=== PATIENT | female | born 1980 | race Caucasian/White ===

== ENCOUNTER 2016-06-10 18:18 | Emergency (ER) | payer BC ==
[~2016-06-10] VITALS: Ht 170.2 cm; Wt 54.0 kg
[~2016-06-10 18:18] MED LIST: ADDE30TA PO; ALBUCI INH; ATEN-100 PO; CLON1 PO
[2016-06-10 18:25] VITALS: BP 114/81; PULSE 94; RESP 16; TEMP 98.4; O2SAT 99
--- NOTE | 2016-06-10 18:42 | PD ---
HPI Chief Complaint: Seizure Time Seen by Provider: 18:31 Travel History International Travel<30 days: No Contact w/Intl Traveler<30days: No Traveled to known affect area: No History of Present Illness HPI Patient is a 35-year-old female who presents emergency department with complaint of seizure. Patient states that she woke up this morning and the next thing she knew she was on the ground, incontinent of urine. She felt tired , confused and achy all over. She does not remember exactly what happened, believes believe she may have had a seizure. Patient notes a seizure times one approximately 3 years ago that was attributed do to electrolyte abnormality, pulse she believes her potassium was low at the time. In the interim, patient has not had any seizures and denies any antiepileptic use. Patient takes Adderall, Klonopin but has not had any recent changes in and the doses of these medicines. She is otherwise been well recently. This happened at approximately 5 AM, patient presents to the ED now at 6:40 PM because of inability to get a ride. She has felt well all day. PFSH Past Medical History Asthma: Yes Depression: Yes Diabetes: No Diminished Hearing: No Immunizations Current: Yes (HEP C CURRENT) ?: Not : 0 Para: 0 Miscarriage: 0 : 0 Past Surgical History Gynecologic Surgery: Yes (LAP FOR ENDOMETRIOSIS) Hysterectomy: Yes Social History Alcohol Use: Yes (1 BEER DAILY 5 DAYS A WEEK) Tobacco Use: No Substance Use: No Allergies-Medications (Allergen,Severity, Reaction): Coded Allergies: Amoxicillin (Verified Allergy, Severe, 06/10/16) Penicillin (Verified Allergy, Severe, UNKNOWN, 06/10/16) Reported Meds & Prescriptions Reported Meds & Active Scripts Active Reported Clonazepam 1 Mg Tab 1 Mg PO BID Albuterol Neb (Albuterol Sulfate) 1.25 Mg/3 Ml Neb 1.25 Mg NEB QID NEB PRN Adderall Xr 24 HR (Amphetamine/Dextroamphetamine) 30 Mg Cap 30 Mg PO DAILY Once daily in the morning. Review of Systems Except as stated in HPI: all other systems reviewed are Neg Physical Exam Narrative GENERAL: Thing female in no acute distress SKIN: Warm and dry. HEAD: Atraumatic. Normocephalic. EYES: Pupils equal and round. No scleral icterus. No injection or drainage. ENT: No nasal bleeding or discharge. Mucous membranes pink and moist. No bite to the tongue but the chip off one of her left maxillary teeth. NECK: Supple without nuchal rigidity CARDIOVASCULAR: Regular rate and rhythm. No murmur appreciated. RESPIRATORY: No accessory muscle use. Clear to auscultation. Breath sounds equal bilaterally. GASTROINTESTINAL: Abdomen soft, non-tender, nondistended. MUSCULOSKELETAL: Moves all extremity's normally NEUROLOGICAL: Awake and alert. No obvious cranial nerve deficits. Motor grossly within normal limits. Normal speech. PSYCHIATRIC: Appropriate mood and affect; insight and judgment normal. Data Data Last Documented VS Vital Signs Date Time Temp Pulse Resp B/P Pulse Ox O2 Delivery O2 Flow Rate FiO2 06/10/16 18:25 98.4 94 16 114/81 99 Orders Complete Blood Count With Diff (06/10/16 18:37) Basic Metabolic Panel (Bmp) (06/10/16 18:37) Electrocardiogram (06/10/16 ) Ecg Monitoring (06/10/16 18:37) Iv Access Insert/Monitor (06/10/16 18:37) Sodium Chloride 0.9% Flush (Ns Flush) (06/10/16 18:45) [facility] Medical Decision Making Medical Screen Exam Complete: Yes Emergency Medical Condition: Yes Medical Record Reviewed: Yes Differential Diagnosis 35-year-old female here with complaint of possible seizure. Differential includes seizure, syncope, arrhythmia, electrolyte abnormality, benzodiazepine or alcohol withdrawal. Less likely intracranial mass lesion. Narrative Course Patient placed on monitor, IV established and blood obtained. Twelve-lead EKG shows sinus rhythm with sinus arrhythmia without notable ST abnormalities, normal intervals. CBC, BMP were obtained and are pending at the time this dictation. Patient signed out to oncoming provider waiting results of same for hopeful disposition home. Additional Instructions: No driving for 6 months. Gita Ron MD Jun 10, 2016 18:42
[2016-06-10] MEDS ORDERED: CLON1TAB PO (18:43)
[2016-06-10] MEDS ORDERED: ALBU1.25 NEB (18:43)
[2016-06-10] MEDS ORDERED: ADDE30XR PO (18:43)
[2016-06-10] MEDS ORDERED: SODIUM CHLORIDE 0.9% FLUSH 5 ML FLUSH IVF PRN (18:45)
[2016-06-10 18:55] LABS: AUTOMATED NEUTROPHIL # 5.7 TH/MM3 (1.8-7.7); BASOPHIL # 0.1 TH/MM3 (0-0.2); EOSINOPHIL # 0.2 TH/MM3 (0-0.4); EOSINOPHIL % 1.9 % (0.0-4.0); HEMATOCRIT 41.9 % (35.0-46.0); HEMO FLAGS DIFF FINAL; LYMPH % 20.9 % (9.0-44.0); LYMPHOCYTE # 1.7 TH/MM3 (1.0-4.8); MEAN CELL VOLUME 94.1 FL (80.0-100.0); MEAN CORPUSCULAR HEMOGLOBIN 31.1 PG (27.0-34.0); MEAN CORPUSCULAR HGB CONC 33.1 % (32.0-36.0); MONO % 4.8 % (0.0-8.0); NEUT % 71.4 % (16.0-70.0); PLATELET COUNT 284 TH/MM3 (150-450); RED BLOOD COUNT 4.46 MIL/MM3 (4.00-5.30); RED CELL DISTRIBUTION WIDTH 13.1 % (11.6-17.2); WHITE BLOOD COUNT 8.1 TH/MM3 (4.0-11.0)
[2016-06-10 19:05] LABS: POTASSIUM 3.4 MEQ/L (3.5-5.1)
[2016-06-10 19:08] LABS: BICARBONATE 25.5 MEQ/L (21.0-32.0)
--- NOTE | 2016-06-10 19:29 | PD ---
Physical Exam Date Seen by Provider: Jun 10, 2016 Time Seen by Provider: 19:28 Narrative accepted in transfer of care from Dr Ron GENERAL: Well developed well-nourished female in no acute distress no respiratory distress; GCS 15 SKIN: Warm and dry. HEAD: Atraumatic. Normocephalic. EYES: Pupils equal and round. No scleral icterus. No injection or drainage. ENT: No nasal bleeding or discharge. Mucous membranes pink and moist. NECK: Trachea midline. No JVD. CARDIOVASCULAR: Regular rate and rhythm. RESPIRATORY: No accessory muscle use. Clear to auscultation. Breath sounds equal bilaterally. GASTROINTESTINAL: Abdomen soft, non-tender, nondistended. Hepatic and splenic margins not palpable. MUSCULOSKELETAL: Extremities without clubbing, cyanosis, or edema. No obvious deformities. NEUROLOGICAL: Awake and alert. No obvious cranial nerve deficits. Motor grossly within normal limits. Five out of 5 muscle strength in the arms and legs. Normal speech. PSYCHIATRIC: Appropriate mood and affect; insight and judgment normal. Data Data Last Documented VS Vital Signs Date Time Temp Pulse Resp B/P Pulse Ox O2 Delivery O2 Flow Rate FiO2 06/10/16 21:44 18 98 Room Air 06/10/16 21:38 87 95/60 06/10/16 18:25 98.4 Orders Complete Blood Count With Diff (06/10/16 18:37) Basic Metabolic Panel (Bmp) (06/10/16 18:37) Electrocardiogram (06/10/16 ) Ecg Monitoring (06/10/16 18:37) Iv Access Insert/Monitor (06/10/16 18:37) Sodium Chloride 0.9% Flush (Ns Flush) (06/10/16 18:45) Potassium Chloride (Kcl) (06/10/16 19:30) Calcium Gluconate (Calcium Gluconate) (06/10/16 19:30) Ct Brain W/O Iv Contrast(Rout) (06/10/16 ) Labs Laboratory Tests Test 06/10/16 18:48 White Blood Count 8.1 TH/MM3 Red Blood Count 4.46 MIL/MM3 Hemoglobin 13.9 GM/DL Hematocrit 41.9 % Mean Corpuscular Volume 94.1 FL Mean Corpuscular Hemoglobin 31.1 PG Mean Corpuscular Hemoglobin 33.1 % Concent Red Cell Distribution Width 13.1 % Platelet Count 284 TH/MM3 Mean Platelet Volume 8.2 FL Neutrophils (%) (Auto) 71.4 % Lymphocytes (%) (Auto) 20.9 % Monocytes (%) (Auto) 4.8 % Eosinophils (%) (Auto) 1.9 % Basophils (%) (Auto) 1.0 % Neutrophils # (Auto) 5.7 TH/MM3 Lymphocytes # (Auto) 1.7 TH/MM3 Monocytes # (Auto) 0.4 TH/MM3 Eosinophils # (Auto) 0.2 TH/MM3 Basophils # (Auto) 0.1 TH/MM3 CBC Comment DIFF FINAL Differential Comment Sodium Level 140 MEQ/L Potassium Level 3.4 MEQ/L Chloride Level 105 MEQ/L Carbon Dioxide Level 25.5 MEQ/L Anion Gap 10 MEQ/L Blood Urea Nitrogen 13 MG/DL Creatinine 0.72 MG/DL Estimat Glomerular Filtration 92 ML/MIN Rate Random Glucose 86 MG/DL Calcium Level 8.0 MG/DL [facility] Medical Record Reviewed: Yes Supervised Visit with CYNDI: No Interpretation(s) Last Impressions Head CT 06/10/16 0000 Signed Impressions: Service Date/Time: Friday, June 10, 2016 20:42 - CONCLUSION: Negative noncontrast head CT. Michael Conklin MD CBC & BMP Diagram 06/10/16 18:48 Differential Diagnosis accepted in transfer of care from Dr Ron, please refer to her dictation Narrative Course accepted in transfer of care from Dr Ron Patient aware of what bite disturbances and given oral replacement of calcium and potassium; Patient concerned no imaging has been performed therefore CT brain noncontrast ordered. CT brain noncontrast reveals no acute abnormality; patient has remained stable in the emergency department without any recurrent syncopal episodes no seizure activity identified and has been monitored without any type of ectopy or arrhythmia. Diagnosis Primary Impression: Syncope Qualified Code: R55 - Syncope, unspecified syncope type Additional Impressions: Hypocalcemia Hypokalemia Referrals: Primary Care Physician 1 day Patient Instructions: General Instructions Additional Instruction: Follow-up with your primary care provider times one day . No driving for 6 months. Return to the emergency department for any concerns or change in condition. Continue current medications as presently prescribed. Do not drink any alcoholic beverages and to follow-up with primary care provider. Follow minor closed head injury precautions 24 hours. Take acetaminophen as needed for discomfort or for fever 100.4F or greater. Apply ice to areas of soft tissue swelling intermittently for the next 12-24 hours. Add calcium containing and potassium containing foods and beverages to dietary intake. Med/Other Pt SpecificInfo: No Change to Meds Disposition: 01 DISCHARGE HOME Condition: Stable Ruby England MD Jun 10, 2016 19:29
[2016-06-10] MEDS ORDERED: CALCIUM GLUCONATE 500 MG TAB PO ONE (19:30)
[2016-06-10] MEDS ORDERED: POTASSIUM CHLORIDE 20 MEQ CONTROLLED RELEASE TAB PO ONE (19:30)
--- NOTE | 2016-06-10 21:10 | RADHPO ---
EXAM DATE/TIME: 06/10/2016 20:42 [facility] COMPARISON: No previous studies available for comparison. INDICATIONS : Syncope. RADIATION DOSE: 64.44 CTDIvol (mGy) MEDICAL HISTORY : Asthma SURGICAL HISTORY : Hysterectomy. ENCOUNTER: Initial ACUITY: 2 days PAIN SCALE: 3/10 LOCATION: cranial TECHNIQUE: Multiple contiguous axial images were obtained of the head. Using automated exposure control and adj ustment of the mA and/or kV according to patient size, radiation dose was kept as low as reasonably a chievable to obtain optimal diagnostic quality images. FINDINGS: CEREBRUM: The ventricles are normal for age. No evidence of midline shift, mass lesion, hemorrhage or acute in farction. No extra-axial fluid collections are seen. POSTERIOR FOSSA: The cerebellum and brainstem are intact. The 4th ventricle is midline. The cerebellopontine angle i s unremarkable. EXTRACRANIAL: The visualized portion of the orbits is intact. SKULL: The calvaria is intact. No evidence of skull fracture. CONCLUSION: Negative noncontrast head CT. Michael Conklin MD on June 10, 2016 at 21:08 Board Certified Radiologist. This report was verified electronically.
[2016-06-10 21:38] VITALS: BP 95/60; PULSE 87; RESP 18; O2SAT 98
--- NOTE | 2016-06-12 06:58 | EKG ---
Date Performed: 06/10/2016 Time Performed: 18:41:04 PTAGE: 35 years EKG: Sinus rhythm with PAC(s) Consider anteroseptal MO, age indeterminate. Q-waves in V1,V2 are new compared to previo us EKG Abnormal ECG PREVIOUS TRACING : 09/26/2007 16.54 DOCTOR: Nazario Small Interpretating Date/Time 06/12/2016 06:57:24
== END 2016-06-10 23:04 | disposition home or self-care (01) ==
LOC: PHED 18:18
DX: R55 Syncope and collapse (principal); E83.51 Hypocalcemia; E87.6 Hypokalemia; R94.31 Abnormal electrocardiogram [ECG] [EKG]; J45.909 Unspecified asthma, uncomplicated
CPT/HCPCS: 70450; 80048; 85025; 93005

== ENCOUNTER 2017-02-06 22:10 | Emergency (ER) | payer BC ==
[~2017-02-06] VITALS: Ht 170.2 cm; Wt 54.1 kg
[~2017-02-06 22:10] MED LIST changes: -ADDE30TA PO; +ADDE30XR PO; +ALBU1.25 NEB; -ALBUCI INH; -ATEN-100 PO; -CLON1 PO; +CLON1TAB PO
[2017-02-06 22:50] VITALS: BP 111/71; PULSE 87; RESP 20; TEMP 97.4; O2SAT 100
[2017-02-06] MEDS ORDERED: ATEN25TA PO (23:34)
[2017-02-06 23:38] VITALS: BP 125/72; PULSE 88; RESP 20; O2SAT 98
[2017-02-07] VITALS: O2SAT 98
[2017-02-07] MEDS ORDERED: IBUPROFEN 600 MG TAB PO ONE (00:15)
--- NOTE | 2017-02-07 00:18 | PD ---
HPI Chief Complaint: Respiratory Symptoms Time Seen by Provider: 00:09 Travel History International Travel<30 days: No Contact w/Intl Traveler<30days: No Traveled to known affect area: No History of Present Illness HPI The patient is a 36-year-old female that states she has been wheezing tonight. She used her albuterol nebulizer until she is shaky but still wheezing. She denies any fever. She was on antibiotics and it did not help. 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 She does not smoke. She denies any chest pain. PFSH Past Medical History ADHD: Yes Asthma: Yes Anxiety: Yes Depression: Yes Diabetes: No Diminished Hearing: No Immunizations Current: Yes (HEP C CURRENT) Tetanus Vaccination: < 5 Years Influenza Vaccination: No ?: Not : 0 Para: 0 Miscarriage: 0 : 0 Past Surgical History Gynecologic Surgery: Yes (LAP FOR ENDOMETRIOSIS) Hysterectomy: Yes Social History Alcohol Use: Yes (beer daily) Tobacco Use: No Substance Use: No Allergies-Medications (Allergen,Severity, Reaction): Coded Allergies: amoxicillin (Unverified Allergy, Severe, 02/06/17) penicillin G (Unverified Allergy, Severe, UNKNOWN, 02/06/17) Reported Meds & Prescriptions Reported Meds & Active Scripts Active Reported Atenolol 25 Mg Tab 1 Mg PO BID Clonazepam 1 Mg Tab 1 Mg PO BID Albuterol Neb (Albuterol Sulfate) 1.25 Mg/3 Ml Neb 1.25 Mg NEB QID NEB PRN Adderall Xr 24 HR (Amphetamine/Dextroamphetamine) 30 Mg Cap 30 Mg PO DAILY Once daily in the morning. Review of Systems Except as stated in HPI: all other systems reviewed are Neg Physical Exam Narrative GENERAL: The patient is alert, oriented 3 in slight respiratory distress. Her vital signs are normal with respirations of 20 and oximetry on her present. SKIN: Focused skin assessment warm/dry. HEAD: Atraumatic. Normocephalic. EYES: Pupils equal and round. No scleral icterus. No injection or drainage. ENT: No nasal bleeding or discharge. Mucous membranes pink and moist. NECK: Trachea midline. No JVD. CARDIOVASCULAR: Regular rate and rhythm. No murmur appreciated. RESPIRATORY: No accessory muscle use. A few scattered wheezes are heard bilaterally.. Breath sounds equal bilaterally. GASTROINTESTINAL: Abdomen soft, non-tender, nondistended. Hepatic and splenic margins not palpable. MUSCULOSKELETAL: No obvious deformities. No clubbing. No cyanosis. No edema. NEUROLOGICAL: Awake and alert. No obvious cranial nerve deficits. Motor grossly within normal limits. Normal speech. PSYCHIATRIC: Appropriate mood and affect; insight and judgment normal. Data Data Last Documented VS Vital Signs Date Time Temp Pulse Resp B/P (MAP) Pulse Ox O2 Delivery O2 Flow Rate FiO2 02/07/17 01:37 94 18 107/62 (77) 98 Room Air 02/06/17 22:50 97.4 Orders Orders Iv Access Insert/Monitor (02/07/17 00:18) Ecg Monitoring (02/07/17 00:18) Oximetry (02/07/17 00:18) Oxygen Administration (02/07/17 00:18) Sodium Chloride 0.9% Flush (Ns Flush) (02/07/17 00:30) Methylprednisolone So Succ Inj (Solumedr (02/07/17 00:30) Albuterol-Ipratropium Neb (Duoneb Neb) (02/07/17 00:30) MDM Medical Decision Making Medical Screen Exam Complete: Yes Emergency Medical Condition: Yes Medical Record Reviewed: Yes Differential Diagnosis Acute asthma, pneumonia, bronchitis, allergic reaction Narrative Course The patient apparently has acute asthma. She cleared up considerably when I listen to her lungs at 0140. She got good relief with the DuoNeb but does not have DuoNeb's at home. She has only albuterol for her nebulizer. She will be given a tapered course of prednisone. She is to follow-up with her primary care physician. Diagnosis Primary Impression: Acute asthma Additional Instructions: As we discussed, the prednisone is taken one tablet twice daily for 4 days followed by one tablet once daily for 4 days. Follow-up with your primary care physician next week. Med/Other Pt SpecificInfo: Prescription(s) given Scripts Prednisone (Prednisone) 50 Mg Tab 50 MG PO BID for X 4 days than once daily X 4 d, #12 TAB 0 Refills Prov: Rafi Sterling MD 02/07/17 Ipratropium-Albuterol Neb (Duoneb) 0.5-2.5 Mg/3 Ml Neb 1 NEBULE INH Q6HR NEB for Breathing Treatment, #120 NEBULE 0 Refills Prov: Rafi Sterling MD 02/07/17 Disposition: 01 DISCHARGE HOME Condition: Stable Rafi Sterling MD Feb 07, 2017 00:18
[2017-02-07] MEDS: RESP: ALBUTEROL 2.5 MG/IPRATROPIUM 0.5 MG NEB (SCH) INH ×2 (00:30→00:31)
[2017-02-07] MEDS ORDERED: SODIUM CHLORIDE 0.9% FLUSH 10 ML FLUSH IVF PRN (00:30)
[2017-02-07] MEDS ORDERED: methylPREDNISolone SOD SUCC 125 MG/2 ML VIAL IV PUSH ONE (00:30)
[2017-02-07 01:37] VITALS: BP 107/62; PULSE 94; RESP 18; O2SAT 98
[2017-02-07] MEDS ORDERED: IPRASOL INH (01:46)
[2017-02-07] MEDS ORDERED: PRED50 PO (01:49)
== END 2017-02-07 02:00 | disposition home or self-care (01) ==
LOC: PHED 22:10
DX: J45.909 Unspecified asthma, uncomplicated (principal)
CPT/HCPCS: 94640; 94664; 96374; 99285; J2930

== ENCOUNTER 2017-04-02 01:08 | Emergency (ER) | payer BC ==
[~2017-04-02] VITALS: Ht 170.2 cm; Wt 58.8 kg
[~2017-04-02 01:08] MED LIST changes: +ATEN25TA PO; +IPRASOL INH; +PRED50 PO
[2017-04-02 01:15] VITALS: BP 116/72; PULSE 127; RESP 12; TEMP 98; O2SAT 98
[2017-04-02] MEDS ORDERED: ATEN25TA PO (01:23)
--- NOTE | 2017-04-02 01:33 | PD ---
HPI Chief Complaint: Respiratory Symptoms Time Seen by Provider: 01:32 Travel History International Travel<30 days: No Contact w/Intl Traveler<30days: No Traveled to known affect area: No History of Present Illness HPI Patient is a 36-year-old female presents emergency department with cough and congestion for the past 2-3 days as well as shortness of breath. Patient states she took 2 albuterol treatments at home and then began having tachycardiac episodes and because she didn't want to make herself anymore tachycardic she decided to come in and be seen. She states been several months is been on steroids, denies any fevers, denies any rash. Symptoms for the past 2-3 days, gradually worsening, context as above, associated signs symptoms as above. She states that she is fairly concerned about the stuffiness in her maxillary sinuses. PFSH Past Medical History ADHD: Yes Asthma: Yes Anxiety: Yes Depression: Yes Diabetes: No Diminished Hearing: No Respiratory: Yes (BRONCHITIS) Immunizations Current: Yes (HEP C CURRENT) Tetanus Vaccination: < 5 Years Influenza Vaccination: No ?: Not : 0 Para: 0 Miscarriage: 0 : 0 Past Surgical History Gynecologic Surgery: Yes (LAP FOR ENDOMETRIOSIS) Hysterectomy: Yes (2007) Social History Alcohol Use: Yes (beer daily) Tobacco Use: No Substance Use: No Allergies-Medications (Allergen,Severity, Reaction): Coded Allergies: amoxicillin (Unverified Allergy, Severe, 04/02/17) penicillin G (Unverified Allergy, Severe, UNKNOWN, 04/02/17) Reported Meds & Prescriptions Reported Meds & Active Scripts Active Azithromycin 250 Mg Tab 250 Mg PO DIRECTED Take 2 tabs (500 mg) on day 1 then 1 tab daily x 4 days. Prednisone 20 Mg Tab 60 Mg PO DAILY 5 Days Duoneb (Ipratropium-Albuterol Neb) 0.5-2.5 Mg/3 Ml Neb 1 Nebule INH Q6HR NEB Reported Atenolol 25 Mg Tab 25 Mg PO DAILY Review of Systems Except as stated in HPI: all other systems reviewed are Neg Physical Exam Narrative GENERAL: Well-developed well-nourished no obvious distress SKIN: Focused skin assessment warm/dry. HEAD: Atraumatic. Normocephalic. EYES: Pupils equal and round. No scleral icterus. No injection or drainage. ENT: No nasal bleeding or discharge. Mucous membranes pink and moist. Oropharynx clear, TMs clear bilaterally. NECK: Trachea midline. No JVD. CARDIOVASCULAR: Regular rhythm with mild tachycardia. No murmur appreciated. 2 + bilateral equal pulses in all 4 extremities RESPIRATORY: No accessory muscle use. There is an end inspiratory wheeze throughout all lung figueroa, good air entry, no accessory muscle use, speaks in full and complete sentences. Breath sounds equal bilaterally. GASTROINTESTINAL: Abdomen soft, non-tender, nondistended. Hepatic and splenic margins not palpable. MUSCULOSKELETAL: No obvious deformities. No clubbing. No cyanosis. No edema. NEUROLOGICAL: Awake and alert. No obvious cranial nerve deficits. Motor grossly within normal limits. Normal speech. PSYCHIATRIC: Appropriate mood and affect; insight and judgment normal. Data Data Last Documented VS Vital Signs Date Time Temp Pulse Resp B/P (MAP) Pulse Ox O2 Delivery O2 Flow Rate FiO2 04/02/17 02:38 122 18 118/68 (85) 99 04/02/17 02:20 Room Air 04/02/17 01:15 98.0 Orders Orders Electrocardiogram (04/02/17 01:32) Chest, Pa & Lat (04/02/17 01:32) Ecg Monitoring (04/02/17 01:32) Oximetry (04/02/17 01:32) Prednisone (Deltasone) (04/02/17 01:45) Albuterol-Ipratropium Neb (Duoneb Neb) (04/02/17 01:45) Sodium Chloride 0.9% Flush (Ns Flush) (04/02/17 01:45) Ed Discharge Order (04/02/17 02:27) [facility] Medical Decision Making Medical Screen Exam Complete: Yes Emergency Medical Condition: Yes Differential Diagnosis Asthma exacerbation, pneumonia, viral illness, sinusitis. Narrative Course Patient roomed emerged permit, given duo neb, chest x-ray negative. She appears well, saturating well. She is tachycardic however has no risk factors for pulmonary embolism and the risks far outweigh the benefits for CT angios at this time. I have very low clinical suspicion for pulmonary embolism given her symptomatology. She is feeling better, discussed symptomatic management, steroids, antibiotics, discussed return to ED criteria follow-up the primary care physician. She stable for discharge. Diagnosis Primary Impression: Asthma exacerbation Qualified Codes: J45.21 - Mild intermittent asthma with (acute) exacerbation Additional Impression: Sinusitis Patient Instructions: Asthma (DC), General Instructions, Sinusitis (ED) Med/Other Pt SpecificInfo: Prescription(s) given Scripts Azithromycin (Azithromycin) 250 Mg Tab 250 MG PO DIRECTED for Infection, #6 TAB 0 Refills Take 2 tabs (500 mg) on day 1 then 1 tab daily x 4 days. Prov: Akira Beck MD 04/02/17 Prednisone (Prednisone) 20 Mg Tab 60 MG PO DAILY for 5 Days, #15 TAB 0 Refills Prov: Akira Beck MD 04/02/17 Disposition: 01 DISCHARGE HOME Condition: Stable Akira Beck MD Apr 02, 2017 01:33
[2017-04-02] MEDS ORDERED: SODIUM CHLORIDE 0.9% FLUSH 10 ML FLUSH IVF PRN (01:45)
[2017-04-02] MEDS ORDERED: RESP: ALBUTEROL 2.5 MG/IPRATROPIUM 0.5 MG NEB (SCH) INH ONE (01:45)
[2017-04-02] MEDS ORDERED: predniSONE 20 MG TAB PO ONE (01:45)
[2017-04-02 02:20] VITALS: PULSE 124; RESP 18; O2SAT 98
[2017-04-02] MEDS ORDERED: PRED20 PO (02:26)
[2017-04-02] MEDS ORDERED: AZIT250T3 PO (02:26)
[2017-04-02 02:38] VITALS: BP 118/68
--- NOTE | 2017-04-02 02:47 | RADRPT ---
EXAM DATE/TIME: 04/02/2017 01:59 [facility] COMPARISON: No previous studies available for comparison. INDICATIONS : Cough and short of breath. MEDICAL HISTORY : Asthma. SURGICAL HISTORY : Hysterectomy. ENCOUNTER: Initial ACUITY: 3 days PAIN SCORE: 0/10 LOCATION: Bilateral chest FINDINGS: PA and lateral views of the chest demonstrate the lungs to be symmetrically aerated without evidence of mass, infiltrate or effusion. The cardiomediastinal contours are unremarkable. Osseous structure s are intact. CONCLUSION: No acute cardiopulmonary disease. Eron Woodard MD on April 02, 2017 at 2:45 Board Certified Radiologist. This report was verified electronically.
--- NOTE | 2017-04-02 15:11 | EKG ---
Date Performed: 04/02/2017 Time Performed: 01:49:41 PTAGE: 36 years EKG: SINUS TACHYCARDIA POSSIBLE RIGHT VENTRICULAR CONDUCTION DELAY PROBABLE SEPTAL MYOCARDIAL IN FARCTION ABNORMAL ECG PREVIOUS TRACING : 06/10/2016 18.41 DOCTOR: Alberto Hankins Interpretating Date/Time 04/02/2017 15:10:40
== END 2017-04-02 02:40 | disposition home or self-care (01) ==
LOC: PHED 01:08
DX: J45.21 Mild intermittent asthma with (acute) exacerbation (principal); J32.9 Chronic sinusitis, unspecified; R00.0 Tachycardia, unspecified
CPT/HCPCS: 71020; 93005; 94664; 99284; J7512

== ENCOUNTER 2017-05-18 14:56 | Emergency (ER) | payer BC ==
[~2017-05-18] VITALS: Ht 170.2 cm; Wt 59.0 kg
[~2017-05-18 14:56] MED LIST changes: -ADDE30XR PO; -ALBU1.25 NEB; +AZIT250T3 PO; -CLON1TAB PO; +PRED20 PO; -PRED50 PO
[2017-05-18 15:11] VITALS: BP 111/58; PULSE 97; RESP 16; TEMP 98; O2SAT 97
[2017-05-18] MEDS ORDERED: DEXT1LIQ15 PO (15:39)
[2017-05-18] MEDS ORDERED: ADVITAB3 PO (15:39)
--- NOTE | 2017-05-18 16:41 | PD ---
HPI Chief Complaint: Cold / Flu Symptoms Time Seen by Provider: 16:31 Travel History International Travel<30 days: No Contact w/Intl Traveler<30days: No Traveled to known affect area: No History of Present Illness HPI 36 year female presents to emergency department with cough and wheezing for 4-5 days. Patient states that she has also felt congested. Patient has a history of asthma and has normally not needed a medication but this has increased over the last couple of days. Patient denies fever, chills. 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 States she has not been back to see her primary care physician. Patient denies corticosteroid inhaler use. She has been using DuoNeb's with good relief since she was prescribed in March by Jhon. [facility] Past Medical History ADHD: Yes Asthma: Yes Anxiety: Yes Depression: Yes Diabetes: No Diminished Hearing: No Respiratory: Yes (BRONCHITIS) Immunizations Current: Yes (HEP C CURRENT) Tetanus Vaccination: Unknown Influenza Vaccination: No ?: Not : 0 Para: 0 Miscarriage: 0 : 0 Past Surgical History Gynecologic Surgery: Yes (LAP FOR ENDOMETRIOSIS) Hysterectomy: Yes Social History Alcohol Use: Yes (beer daily) Tobacco Use: No Substance Use: No Allergies-Medications (Allergen,Severity, Reaction): Coded Allergies: amoxicillin (Unverified Allergy, Severe, 05/18/17) penicillin G (Unverified Allergy, Severe, UNKNOWN, 05/18/17) Reported Meds & Prescriptions Reported Meds & Active Scripts Active Albuterol Neb (Albuterol Sulfate) 2.5 Mg/3 Ml Neb 2.5 Mg NEB Q4HR NEB PRN Prednisone 20 Mg Tab 20 Mg PO DAILY 10 Days Ventolin Hfa 18 GM Inh (Albuterol Sulfate) 90 Mcg/Act Aer 2 Puff INH Q4-6H PRN Duoneb (Ipratropium-Albuterol Neb) 0.5-2.5 Mg/3 Ml Neb 1 Nebule INH Q6HR NEB Reported Advil Allergy Sinus (Ovvhohlvdksvnugc-Pkyuggholtoobmy-Vadrcxtty) 2-30-200 Mg Tab 1 Tab PO Q4H PRN Delsym Cough Chest Congestion (Dextromethorphan-Guaifenesin Liq) 5-100 Mg/5 Ml Liq 20 Ml PO Q6H PRN Review of Systems Except as stated in HPI: all other systems reviewed are Neg Physical Exam Narrative GENERAL: Well-nourished and distress, sitting complained of a complex crossed SKIN: Focused skin assessment warm/dry. HEAD: Atraumatic. Normocephalic. EYES: Pupils equal and round. No scleral icterus. No injection or drainage. ENT: No nasal bleeding or discharge. Mucous membranes pink and moist. NECK: Trachea midline. No JVD. CARDIOVASCULAR: Regular rate and rhythm. No murmur appreciated. RESPIRATORY: No accessory muscle use. Diffuse wheezing bilaterally GASTROINTESTINAL: Abdomen soft, non-tender, nondistended. Hepatic and splenic margins not palpable. MUSCULOSKELETAL: No obvious deformities. No clubbing. No cyanosis. No edema. NEUROLOGICAL: Awake and alert. No obvious cranial nerve deficits. Motor grossly within normal limits. Normal speech. PSYCHIATRIC: Appropriate mood and affect; insight and judgment normal. Data Data Last Documented VS Vital Signs Date Time Temp Pulse Resp B/P (MAP) Pulse Ox O2 Delivery O2 Flow Rate FiO2 05/18/17 15:11 98.0 97 16 111/58 (75) 97 Orders Orders Methylprednisolone So Succ Inj (Solumedr (05/18/17 16:45) Albuterol-Ipratropium Neb (Duoneb Neb) (05/18/17 16:45) Methylprednisolone So Succ Inj (Solumedr (05/18/17 16:45) Ed Discharge Order (05/18/17 17:03) [facility] Medical Decision Making Medical Screen Exam Complete: Yes Emergency Medical Condition: Yes Differential Diagnosis Asthma exacerbation, viral syndrome, influenza Narrative Course 36 year female presents to emergency department with cough and wheezing for 4-5 days. Patient states that she has also felt congested. Patient has a history of asthma and has normally not needed a medication but this has increased over the last couple of days. Patient denies fever, chills. Denies chest pain or shortness of breath. 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 States she has not been back to see her primary care physician. Patient denies corticosteroid inhaler use. She has been using DuoNeb's with good relief since she was prescribed in March by Jhon. Vital signs stable. Physical exam findings of diffuse wheezing bilateral lung figueroa. I offered the patient a nebulizer treatment today however, patient declined. Says that she will take her inhalers and nebulizers when she gets home. Solu-Medrol 125 mg administered Patient will be discharged with albuterol inhaler and albuterol nebs Patient to follow-up with [facility] or her primary care physician. Return to the emergency department worsening or persistent symptoms. Diagnosis Primary Impression: Asthma exacerbation Qualified Codes: J45.21 - Mild intermittent asthma with (acute) exacerbation Referrals: Primary Care Physician Additional Instructions: Follow-up with primary care physician this week. If your symptoms persist or worsen return to the emergency. Remain active as tolerated to prevent worsening of your symptoms. Ensure you have adequate fluid intake and nutritious diet. You may alternate tylenol or motrin per package instructions for your symptoms. Scripts Albuterol Neb (Albuterol Neb) 2.5 Mg/3 Ml Neb 2.5 MG NEB Q4HR NEB Y for SHORTNESS OF BREATH, #60 NEBULE 0 Refills Prov: Jammie Santos 05/18/17 Prednisone (Prednisone) 20 Mg Tab 20 MG PO DAILY for 10 Days, #10 TAB 0 Refills Prov: Jammie Santos 05/18/17 Albuterol 18 GM Inh (Ventolin Hfa 18 GM Inh) 90 Mcg/Act Aer 2 PUFF INH Q4-6H Y for SHORTNESS OF BREATH, #1 INHALER 0 Refills Prov: Jammie Santos 05/18/17 Disposition: 01 DISCHARGE HOME Condition: Stable Jammie Santos May 18, 2017 16:41
[2017-05-18] MEDS: RESP: ALBUTEROL 2.5 MG/IPRATROPIUM 0.5 MG NEB (SCH) INH (16:43)
[2017-05-18] MEDS ORDERED: methylPREDNISolone SOD SUCC 125 MG/2 ML VIAL IM ONE (16:45)
[2017-05-18] MEDS ORDERED: methylPREDNISolone SOD SUCC 125 MG/2 ML VIAL IV PUSH ONE (16:45)
[2017-05-18] MEDS ORDERED: VENTAER INH (17:03)
[2017-05-18] MEDS ORDERED: PRED20 PO (17:03)
[2017-05-18] MEDS ORDERED: ALBU0.08 NEB (17:03)
== END 2017-05-18 17:39 | disposition home or self-care (01) ==
LOC: PHEFT 14:56
DX: J45.901 Unspecified asthma with (acute) exacerbation (principal); F90.9 Attention-deficit hyperactivity disorder, unspecified type; J45.909 Unspecified asthma, uncomplicated; F41.9 Anxiety disorder, unspecified; F32.9 Major depressive disorder, single episode, unspecified; Z79.51 Long term (current) use of inhaled steroids; Z88.0 Allergy status to penicillin
CPT/HCPCS: 94664; 96372; 99284; J2930

== ENCOUNTER 2017-06-23 22:47 | Emergency (ER) | payer BC ==
[~2017-06-23] VITALS: Ht 170.2 cm; Wt 59.5 kg
[~2017-06-23 22:47] MED LIST changes: +ADVITAB3 PO; +ALBU0.08 NEB; -ATEN25TA PO; -AZIT250T3 PO; +DEXT1LIQ15 PO; +VENTAER INH
[2017-06-23 23:02] VITALS: BP 116/60; PULSE 108; RESP 18; TEMP 97.9; O2SAT 94
[2017-06-23] MEDS ORDERED: DEXAMETHASONE SOD PHOS 4 MG/ML VIAL IM ONE (23:30)
[2017-06-23] MEDS ORDERED: MEDR4PAK PO (23:33)
[2017-06-23] MEDS ORDERED: IPRASOL INH (23:33)
--- NOTE | 2017-06-23 23:33 | PD ---
HPI Chief Complaint: Respiratory Symptoms Time Seen by Provider: 23:24 Travel History International Travel<30 days: No Contact w/Intl Traveler<30days: No Traveled to known affect area: No History of Present Illness HPI Patient has a long-standing history of asthma, and she has run out of DuoNeb, albuterol, and steroids that she has at home. She also suffers from seasonal allergies, and has been having runny nose and posterior drainage in her throat. Symptoms improved tremendously with breathing treatments. Patient denies any associated factors such as fever, rash, headache, chest pain, abdominal pain, back pain, nausea, vomiting, diarrhea, cough, runny nose Allergy to amoxicillin/penicillin patient states that she develops anaphylaxis Past medical history of asthma, premature Past surgical history significant for hysterectomy PFSH Past Medical History ADHD: Yes Asthma: Yes Anxiety: Yes Depression: Yes Diabetes: No Diminished Hearing: No Respiratory: Yes (BRONCHITIS) Immunizations Current: Yes (HEP C CURRENT) ?: Unknown : 0 Para: 0 Miscarriage: 0 : 0 Past Surgical History Gynecologic Surgery: Yes (LAP FOR ENDOMETRIOSIS) Hysterectomy: Yes Social History Alcohol Use: Yes (beer daily) Tobacco Use: No Substance Use: No Allergies-Medications (Allergen,Severity, Reaction): Coded Allergies: amoxicillin (Verified Allergy, Severe, 06/23/17) penicillin G (Verified Allergy, Severe, UNKNOWN, 06/23/17) Reported Meds & Prescriptions Reported Meds & Active Scripts Active Albuterol Neb (Albuterol Sulfate) 2.5 Mg/3 Ml Neb 2.5 Mg NEB Q4HR NEB PRN Ventolin Hfa 18 GM Inh (Albuterol Sulfate) 90 Mcg/Act Aer 2 Puff INH Q4-6H PRN Review of Systems General / Constitutional: No: Fever Eyes: No: Visual changes HENT: No: Headaches Cardiovascular: No: Chest Pain or Discomfort Respiratory: Positive: Wheezing Gastrointestinal: No: Abdominal Pain Genitourinary: No: Dysuria Musculoskeletal: No: Pain Skin: No Rash Neurologic: No: Weakness Psychiatric: No: Depression Endocrine: No: Polydipsia Hematologic/Lymphatic: No: Easy Bruising Physical Exam Narrative GENERAL: SKIN: Warm and dry. HEAD: Atraumatic. Normocephalic. EYES: Pupils equal and round. No scleral icterus. No injection or drainage. ENT: No nasal bleeding or discharge. Mucous membranes pink and moist. NECK: Trachea midline. No JVD. CARDIOVASCULAR: Mild tachycardic rate and regular rhythm. RESPIRATORY: No accessory muscle use. Diffuse wheezing heard, good bilateral tidal volume . Patient able to speak complete sentences, no tripoding no accessory muscle use. GASTROINTESTINAL: Abdomen soft, non-tender, nondistended. MUSCULOSKELETAL: Extremities without clubbing, cyanosis, or edema. No obvious deformities. NEUROLOGICAL: Awake and alert. No obvious cranial nerve deficits. Motor grossly within normal limits. Five out of 5 muscle strength in the arms and legs. Normal speech. PSYCHIATRIC: Appropriate mood and affect; insight and judgment normal. Data Data Last Documented VS Vital Signs Date Time Temp Pulse Resp B/P (MAP) Pulse Ox O2 Delivery O2 Flow Rate FiO2 06/23/17 23:02 97.9 108 18 116/60 (78) 94 Orders Orders Chest, Single Ap (06/23/17 23:24) Duoneb Q15min X 3 Doses (06/23/17 23:30) Dexamethasone Inj (Decadron Inj) (06/23/17 23:30) MDM Medical Decision Making Medical Screen Exam Complete: Yes Emergency Medical Condition: Yes Medical Record Reviewed: Yes Interpretation(s) Pulse ox at bedside on room air shows an excellent Pleth wave, 98% on room air which is within normal limits On rhythm strip patient shows mild tachycardia at 108, sinus tach. Differential Diagnosis Pneumonia versus asthma exacerbation versus hypoxemia versus pleural effusion Narrative Course Chest x-ray does not show any pleural effusion, pneumothorax, or any infiltrate consistent with a pneumonia. Normal pulse ox Improved aeration and decrease wheezing after nebulizer treatment given Diagnosis Primary Impression: Asthma exacerbation Qualified Codes: J45.901 - Unspecified asthma with (acute) exacerbation Patient Instructions: Asthma (ED), General Instructions Scripts Methylprednisolone Dosepak (Medrol Dosepak) 4 Mg Dspk 4 MG PO DIRECTED, #1 DSPK 0 Refills Per Pharmacist direction Prov: Ravindra Dunham MD 06/23/17 Ipratropium-Albuterol Neb (Duoneb) 0.5-2.5 Mg/3 Ml Neb 1 NEBULE INH Q8HR NEB for Breathing Treatment, #90 NEBULE 0 Refills Prov: Ravindra Dunham MD 06/23/17 Disposition: 01 DISCHARGE HOME Condition: Stable Ravindra Dunham MD Jun 23, 2017 23:33
--- NOTE | 2017-06-23 23:35 | RADRPT ---
EXAM DATE/TIME: 06/23/2017 23:27 [facility] COMPARISON: No previous studies available for comparison. INDICATIONS : Shortness of breath. MEDICAL HISTORY : Asthma. SURGICAL HISTORY : None. ENCOUNTER: Initial ACUITY: 1 day PAIN SCORE: 0/10 LOCATION: Bilateral chest FINDINGS: A single view of the chest demonstrates the lungs to be symmetrically aerated without evidence of mas s, infiltrate or effusion. The cardiomediastinal contours are unremarkable. Osseous structures are intact. CONCLUSION: The lungs are clear. Eron Woodard MD on June 23, 2017 at 23:33 Board Certified Radiologist. This report was verified electronically.
[2017-06-23] MEDS: RESP: ALBUTEROL 2.5 MG/IPRATROPIUM 0.5 MG NEB (SCH) INH ×2 (23:46→23:55)
[2017-06-24] MEDS: RESP: ALBUTEROL 2.5 MG/IPRATROPIUM 0.5 MG NEB (SCH) INH (00:05)
[2017-06-24 01:33] VITALS: BP 147/72
== END 2017-06-24 01:35 | disposition home or self-care (01) ==
LOC: PHED 22:47
DX: J45.901 Unspecified asthma with (acute) exacerbation (principal); F90.9 Attention-deficit hyperactivity disorder, unspecified type; J45.909 Unspecified asthma, uncomplicated; F41.9 Anxiety disorder, unspecified; F32.9 Major depressive disorder, single episode, unspecified; Z86.19 Personal history of other infectious and parasitic diseases; Z88.0 Allergy status to penicillin; Z79.51 Long term (current) use of inhaled steroids
CPT/HCPCS: 71045; 94640; 94664; 96372; 99283; J1100

== ENCOUNTER 2017-07-21 17:45 | Observation (INO) | payer BC ==
[~2017-07-21] VITALS: Ht 170.2 cm; Wt 59.0 kg
[2017-07-21 17:45] VITALS: BP 105/74; PULSE 131; RESP 20; TEMP 97.8; O2SAT 100
[~2017-07-21 17:45] MED LIST changes: -ADVITAB3 PO; -DEXT1LIQ15 PO; +MEDR4PAK PO; -PRED20 PO
[2017-07-21 17:58] VITALS: O2SAT 100
[2017-07-21] MEDS ORDERED: SODIUM CHLORIDE 0.9% FLUSH 10 ML FLUSH IVF PRN (18:00)
[2017-07-21] MEDS ORDERED: RESP: ALBUTEROL 2.5 MG/IPRATROPIUM 0.5 MG NEB (SCH) INH ONE (18:00)
--- NOTE | 2017-07-21 18:01 | PD ---
HPI Chief Complaint: Shortness of breath Time Seen by Provider: 17:55 Travel History International Travel<30 days: No Contact w/Intl Traveler<30days: No Traveled to known affect area: No History of Present Illness HPI The patient is a 37-year-old female who presents to the emergency department via EMS for shortness of breath. The patient states her symptoms started earlier today at approximately 3:30 PM. The patient awakened and noticed that she was short of breath, chest congestion, and wheezing. The patient used her nebulizer at home, however, continue have symptoms. The patient then called EMS and was administered Solu-Medrol 125 mg intravenously and 2 albuterol nebulizers. The patient continues to have chest congestion, tightness, and wheezing. She does note a dry mostly nonproductive cough. She does complain of postnasal drainage recently secondary to surgeries, or prolonged travel in the last 3 months. Symptoms are moderate. She denies any associated fever, chills, or sweats. PFSH Past Medical History ADHD: Yes Asthma: Yes Anxiety: Yes Depression: Yes Diabetes: No Diminished Hearing: No Respiratory: Yes (BRONCHITIS) Immunizations Current: Yes (HEP C CURRENT) : 0 Para: 0 Miscarriage: 0 : 0 Past Surgical History Gynecologic Surgery: Yes (LAP FOR ENDOMETRIOSIS) Hysterectomy: Yes Social History Alcohol Use: Yes (beer daily) Tobacco Use: Yes (Occasional) Substance Use: No Allergies-Medications (Allergen,Severity, Reaction): Coded Allergies: amoxicillin (Verified Allergy, Severe, 07/21/17) penicillin G (Verified Allergy, Severe, UNKNOWN, 07/21/17) Reported Meds & Prescriptions Reported Meds & Active Scripts Active Medrol Dosepak (Methylprednisolone) 4 Mg Dspk 4 Mg PO DIRECTED Per Pharmacist direction Duoneb (Ipratropium-Albuterol Neb) 0.5-2.5 Mg/3 Ml Neb 1 Nebule INH Q8HR NEB Albuterol Neb (Albuterol Sulfate) 2.5 Mg/3 Ml Neb 2.5 Mg NEB Q4HR NEB PRN Ventolin Hfa 18 GM Inh (Albuterol Sulfate) 90 Mcg/Act Aer 2 Puff INH Q4-6H PRN Reported Klonopin (Clonazepam) 1 Mg Tab 1-2 Mg PO BID Adderall Xr 24 HR (Amphetamine/Dextroamphetamine) 30 Mg Cap 30 Mg PO DAILY Once daily in the morning. Review of Systems Except as stated in HPI: all other systems reviewed are Neg General / Constitutional: No: Fever, Chills HENT: No: Lightheadedness Cardiovascular: Positive: Chest Pain or Discomfort (Tightness with wheezing) Respiratory: Positive: Shortness of Breath, Wheezing Gastrointestinal: No: Nausea, Vomiting, Abdominal Pain Musculoskeletal: No: Edema Neurologic: No: Dizziness Physical Exam Narrative GENERAL: Awake, alert, pleasant 37-year-old female who appears her stated age and is in mild respiratory distress. SKIN: Focused skin assessment warm/dry. HEAD: Atraumatic. Normocephalic. EYES: Pupils equal and round. No scleral icterus. No injection or drainage. ENT: No nasal bleeding or discharge. Mucous membranes pink and moist. NECK: Trachea midline. No JVD. CARDIOVASCULAR: R regular, tachycardic with a heart rate in the 130s. RESPIRATORY: Tachypnea with a respiratory rate of 22, prolonged expiratory phase with diffuse wheezing. GASTROINTESTINAL: Abdomen soft, non-tender, nondistended. No rebound tenderness. MUSCULOSKELETAL: No obvious deformities. No clubbing. No cyanosis. No edema. NEUROLOGICAL: Awake and alert. No obvious cranial nerve deficits. Motor grossly within normal limits. Normal speech. PSYCHIATRIC: Appropriate mood and affect; insight and judgment normal. Data Data Last Documented VS Vital Signs Date Time Temp Pulse Resp B/P (MAP) Pulse Ox O2 Delivery O2 Flow Rate FiO2 07/21/17 17:58 100 07/21/17 17:55 124 20 Aerosol Mask 07/21/17 17:45 97.8 105/74 (84) Orders Orders Complete Blood Count With Diff (07/21/17 17:55) Comprehensive Metabolic Panel (07/21/17 17:55) Magnesium (Mg) (07/21/17 17:55) Iv Access Insert/Monitor (07/21/17 17:55) Electrocardiogram (07/21/17 17:55) Ecg Monitoring (07/21/17 17:55) Oximetry (07/21/17 17:55) Oxygen Administration (07/21/17 17:55) Chest, Single Ap (07/21/17 17:55) Sodium Chloride 0.9% Flush (Ns Flush) (07/21/17 18:00) Albuterol-Ipratropium Neb (Duoneb Neb) (07/21/17 18:00) Admit Order (Ed Use Only) (07/21/17 19:03) Labs Laboratory Tests Test 07/21/17 18:00 White Blood Count 4.9 TH/MM3 Red Blood Count 4.11 MIL/MM3 Hemoglobin 13.0 GM/DL Hematocrit 37.8 % Mean Corpuscular Volume 91.9 FL Mean Corpuscular Hemoglobin 31.7 PG Mean Corpuscular Hemoglobin Concent 34.5 % Red Cell Distribution Width 13.3 % Platelet Count 251 TH/MM3 Mean Platelet Volume 8.2 FL Neutrophils (%) (Auto) 65.8 % Lymphocytes (%) (Auto) 17.7 % Monocytes (%) (Auto) 6.0 % Eosinophils (%) (Auto) 8.5 % Basophils (%) (Auto) 2.0 % Neutrophils # (Auto) 3.2 TH/MM3 Lymphocytes # (Auto) 0.9 TH/MM3 Monocytes # (Auto) 0.3 TH/MM3 Eosinophils # (Auto) 0.4 TH/MM3 Basophils # (Auto) 0.1 TH/MM3 CBC Comment DIFF FINAL Differential Comment Blood Urea Nitrogen 16 MG/DL Creatinine 0.89 MG/DL Random Glucose 122 MG/DL Total Protein 6.8 GM/DL Albumin 3.4 GM/DL Calcium Level 8.2 MG/DL Magnesium Level 2.1 MG/DL Alkaline Phosphatase 67 U/L Aspartate Amino Transf (AST/SGOT) 18 U/L Alanine Aminotransferase (ALT/SGPT) 21 U/L Total Bilirubin 0.2 MG/DL Sodium Level 141 MEQ/L Potassium Level 3.4 MEQ/L Chloride Level 111 MEQ/L Carbon Dioxide Level 22.6 MEQ/L Anion Gap 7 MEQ/L Estimat Glomerular Filtration Rate 71 ML/MIN MDM Medical Decision Making Medical Screen Exam Complete: Yes Emergency Medical Condition: Yes Medical Record Reviewed: Yes Interpretation(s) EKG reveals sinus tachycardia with a heart rate of 126. QTc 391 ms. Laboratory Tests Test 07/21/17 18:00 White Blood Count 4.9 TH/MM3 Red Blood Count 4.11 MIL/MM3 Hemoglobin 13.0 GM/DL Hematocrit 37.8 % Mean Corpuscular Volume 91.9 FL Mean Corpuscular Hemoglobin 31.7 PG Mean Corpuscular Hemoglobin Concent 34.5 % Red Cell Distribution Width 13.3 % Platelet Count 251 TH/MM3 Mean Platelet Volume 8.2 FL Neutrophils (%) (Auto) 65.8 % Lymphocytes (%) (Auto) 17.7 % Monocytes (%) (Auto) 6.0 % Eosinophils (%) (Auto) 8.5 % Basophils (%) (Auto) 2.0 % Neutrophils # (Auto) 3.2 TH/MM3 Lymphocytes # (Auto) 0.9 TH/MM3 Monocytes # (Auto) 0.3 TH/MM3 Eosinophils # (Auto) 0.4 TH/MM3 Basophils # (Auto) 0.1 TH/MM3 CBC Comment DIFF FINAL Differential Comment Blood Urea Nitrogen 16 MG/DL Creatinine 0.89 MG/DL Random Glucose 122 MG/DL Total Protein 6.8 GM/DL Albumin 3.4 GM/DL Calcium Level 8.2 MG/DL Magnesium Level 2.1 MG/DL Alkaline Phosphatase 67 U/L Aspartate Amino Transf (AST/SGOT) 18 U/L Alanine Aminotransferase (ALT/SGPT) 21 U/L Total Bilirubin 0.2 MG/DL Sodium Level 141 MEQ/L Potassium Level 3.4 MEQ/L Chloride Level 111 MEQ/L Carbon Dioxide Level 22.6 MEQ/L Anion Gap 7 MEQ/L Estimat Glomerular Filtration Rate 71 ML/MIN Chest x-ray reveals no acute disease Differential Diagnosis Differential diagnosis includes asthma exacerbation, reactive airway disease, bronchitis, pneumonia, congestive heart failure, pulmonary edema, pleural effusion, pulmonary embolism, pneumothorax. Narrative Course IV was established, labs are drawn and sent, and the patient was placed on cardiac telemetry monitoring and continuous pulse oximetry monitoring. EKG was ordered and interpreted. Chest x-ray was obtained. The patient received steroids and 2 albuterol nebulizers prior to arrival, was administered 1 DuoNeb in the emergency department. The patient was then monitored, she denies any risk factors for pulmonary embolism or history of previous PE/DVT. Chest x-ray is unremarkable. Laboratory evaluation is unremarkable. The patient was reevaluated at 6:45 PM, heart rate still is in the 120s, patient still has diffuse lung sounds though slightly improved in the lower lobes. However, patient's heart rate was still in the 120s and O2 sat was 92-95% with a good waveform. She is still symptomatic. Therefore, patient will be a 23 hour observation for acute exacerbation of asthma. The patient's primary physician Dr. Jonathan Maier, therefore, [facility] were paged for 23 hour observation. Physician Communication Physician Communication [facility] were paged for 23 hour observation. I discussed the patient with Dr. Chang who agrees with 23 hour observation. Diagnosis Primary Impression: Asthma exacerbation Qualified Codes: J45.901 - Unspecified asthma with (acute) exacerbation Additional Impression: Dyspnea Qualified Codes: R06.02 - Shortness of breath Admitting Information Admitting Physician Requests: Observation Condition: Stable Ever James MD Jul 21, 2017 18:01
[2017-07-21] MEDS ORDERED: CLON1 PO (18:03)
[2017-07-21] MEDS ORDERED: ADDE30XR PO (18:03)
[2017-07-21 18:06] LABS: AUTOMATED NEUTROPHIL # 3.2 TH/MM3 (1.8-7.7); BASOPHIL # 0.1 TH/MM3 (0-0.2); EOSINOPHIL # 0.4 TH/MM3 (0-0.4); EOSINOPHIL % 8.5 % (0.0-4.0); HEMATOCRIT 37.8 % (35.0-46.0); LYMPH % 17.7 % (9.0-44.0); LYMPHOCYTE # 0.9 TH/MM3 (1.0-4.8); MEAN CELL VOLUME 91.9 FL (80.0-100.0); MEAN CORPUSCULAR HEMOGLOBIN 31.7 PG (27.0-34.0); MEAN CORPUSCULAR HGB CONC 34.5 % (32.0-36.0); MEAN PLATELET VOLUME 8.2 FL (7.0-11.0); MONOCYTE # 0.3 TH/MM3 (0-0.9); NEUT % 65.8 % (16.0-70.0); PLATELET COUNT 251 TH/MM3 (150-450); RED BLOOD COUNT 4.11 MIL/MM3 (4.00-5.30); RED CELL DISTRIBUTION WIDTH 13.3 % (11.6-17.2); WHITE BLOOD COUNT 4.9 TH/MM3 (4.0-11.0)
[2017-07-21 18:14] LABS: CHLORIDE 111 MEQ/L (98-107); SODIUM (NA) 141 MEQ/L (136-145)
[2017-07-21 18:17] LABS: CALCIUM 8.2 MG/DL (8.5-10.1)
[2017-07-21 18:18] LABS: ALBUMIN 3.4 GM/DL (3.4-5.0); BICARBONATE 22.6 MEQ/L (21.0-32.0); BLOOD UREA NITROGEN 16 MG/DL (7-18); GLUCOSE,RANDOM 122 MG/DL (74-106); MAGNESIUM 2.1 MG/DL (1.5-2.5)
[2017-07-21 18:21] LABS: ALT (GPT) 21 U/L (10-53); AST (GOT) 18 U/L (15-37); CREATININE 0.89 MG/DL (0.50-1.00); GLOMERULAR FILTRATION RATE 71 ML/MIN (>89)
[2017-07-21 18:22] LABS: TOTAL BILIRUBIN ADULT 0.2 MG/DL (0.2-1.0); TOTAL PROTEIN 6.8 GM/DL (6.4-8.2)
[2017-07-21 18:24] LABS: ALKALINE PHOSPHATASE 67 U/L (45-117)
--- NOTE | 2017-07-21 18:34 | RADRPT ---
EXAM DATE/TIME: 07/21/2017 18:21 [facility] COMPARISON: CHEST SINGLE AP, June 23, 2017, 23:27. INDICATIONS : Short of breath. MEDICAL HISTORY : None. SURGICAL HISTORY : None. ENCOUNTER: Initial ACUITY: 1 day PAIN SCORE: 5/10 LOCATION: Bilateral chest FINDINGS: A single view of the chest demonstrates the lungs to be symmetrically aerated without evidence of mas s, infiltrate or effusion. The cardiomediastinal contours are unremarkable. Osseous structures are intact. CONCLUSION: No acute disease. Darian Martinez MD on July 21, 2017 at 18:31 Board Certified Radiologist. This report was verified electronically.
[2017-07-21 19:14] VITALS: BP 90/67; PULSE 118; RESP 22; O2SAT 94
[2017-07-21 20:20] VITALS: BP 119/75; PULSE 122; RESP 20; TEMP 98; O2SAT 97
[2017-07-21 20:48] VITALS: O2SAT 97
[2017-07-21] MEDS: RESP: ALBUTEROL 2.5 MG/IPRATROPIUM 0.5 MG NEB (SCH) NEB (20:48)
[2017-07-21] MEDS ORDERED: methylPREDNISolone SOD SUCC 125 MG/2 ML VIAL IV PUSH ONE (23:00)
[2017-07-22] VITALS: BP 109/74; PULSE 117; RESP 20; TEMP 97.5; O2SAT 97
[2017-07-22] MEDS: RESP: ALBUTEROL 1.25 MG/3 ML NEB (PRN) NEB ×2 (00:22→10:40)
[2017-07-22] MEDS: RESP: ALBUTEROL 2.5 MG/IPRATROPIUM 0.5 MG NEB (SCH) NEB (06:39)
[2017-07-22 07:00] VITALS: BP 111/71; PULSE 120; RESP 17; TEMP 98.1; O2SAT 96
[2017-07-22] MEDS: methylPREDNISolone SOD SUCC 125 MG/2 ML VIAL IV PUSH SCH ×2 (09:00→10:21)
[2017-07-22] MEDS ORDERED: MEDR4PAK PO (10:10)
[2017-07-22] MEDS ORDERED: IPRASOL INH (10:10)
--- NOTE | 2017-07-22 10:11 | HHI.DCPOC ---
Discharge Care Plan Diagnosis: (1) Asthma exacerbation Goals to Promote Your Health * To prevent worsening of your condition and complications * To maintain your health at the optimal level Directions to Meet Your Goals Take your medications as prescribed Follow your dietary instruction Follow activity as directed Keep your appointments as scheduled Take your immunizations and boosters as scheduled If your symptoms worsen call your PCP, if no PCP go to Urgent Care Center or Emergency Room Smoking is Dangerous to Your Health. Avoid second hand smoke Call the 24-hour hour crisis hotline for domestic abuse at Cyndi Molina MD Jul 22, 2017 10:11
--- NOTE | 2017-07-22 10:16 | HHI.HP ---
[facility]Staff Admission Diagnosis Asthma exacerbation, persistent tachycardia Diagnoses: Chief Complaint: Shortness of breath and cough Travel History International Travel<30 Days: No Contact w/Intl Traveler <30 Da: No Traveled to Known Affected Are: No History of Present Illness This patient is a 37-year-old female with a history of asthma. She ran out of her nebulizer and the machine stopped working. She had increased shortness of breath and dyspnea on exertion. She came to the hospital for further treatment. She was doing much better with IV steroids and nebulizers. Her x- ray was clear and her sats have been quite stable. Patient has improved enough to go home Review of Systems Constitutional: DENIES: Diaphoretic episodes, Fatigue, Fever, Weight gain, Weight loss, Chills, Dizziness, Change in appetite, Night Sweats Endocrine: DENIES: Abnorml menstrual pattern, Heat/cold intolerance, Polydipsia , Polyuria, Polyphagia Eyes: DENIES: Blurred vision, Diplopia, Eye inflammation, Eye pain, Vision loss , Photosensitivity, Double Vision Ears, nose, mouth, throat: DENIES: Tinnitus, Hearing loss, Vertigo, Nasal discharge, Oral lesions, Throat pain, Hoarseness, Ear Pain, Running Nose, Epistaxis, Sinus Pain, Toothache, Odynophagia Respiratory: COMPLAINS OF: Cough, Shortness of breath, DENIES: Apneas, Snoring , Wheezing, Hemoptysis, Sputum production Cardiovascular: COMPLAINS OF: Dyspnea on Exertion, DENIES: Chest pain, Palpitations, Syncope, PND, Lower Extremity Edema, Orthopnea, Claudication Gastrointestinal: DENIES: Abdominal pain, Black stools, Bloody stools, Constipation, Diarrhea, Nausea, Vomiting, Difficulty Swallowing, Anorexia Musculoskeletal: DENIES: Joint pain, Muscle aches, Stiffness, Joint Swelling, Back pain, Neck pain Integumentary: DENIES: Abnormal pigmentation, Pruritus, Rash, Nail changes, Breast masses, Breast skin changes, Nipple discharge Hematologic/lymphatic: DENIES: Bruising, Lymphadenopathy Immunologic/allergic: DENIES: Eczema, Urticaria Neurologic: DENIES: Abnormal gait, Headache, Localized weakness, Paresthesias, Seizures, Speech Problems, Tremor, Poor Balance Psychiatric: DENIES: Anxiety, Confusion, Mood changes, Depression, Hallucinations, Agitation, Suicidal Ideation, Homicidal Ideation, Delusions Except as stated in HPI: all other systems reviewed are Neg Past Family Social History Past Medical History Asthma Hepatitis C Past Surgical History Gynecological surgeon Reported Medications Reviewed in the EMR, ran out of her nebulizer medicine Allergies: Coded Allergies: amoxicillin (Verified Allergy, Severe, 07/21/17) penicillin G (Verified Allergy, Severe, UNKNOWN, 07/21/17) Active Ordered Medications Reviewed in the EMR Family History Healthy Social History Alcohol and tobacco occasionally, employed Physical Exam Vital Signs Vital Signs Date Time Temp Pulse Resp B/P (MAP) Pulse Ox O2 Delivery O2 Flow Rate FiO2 07/22/17 07:00 98.1 120 17 111/71 (84) 96 07/22/17 00:00 97.5 117 20 109/74 (86) 97 07/21/17 20:48 97 21 07/21/17 20:20 98.0 122 20 119/75 (90) 97 07/21/17 20:17 07/21/17 19:14 118 22 90/67 (75) 94 Room Air 07/21/17 17:58 100 07/21/17 17:58 100 07/21/17 17:55 124 20 100 Aerosol Mask 07/21/17 17:45 97.8 131 20 105/74 (84) 100 Physical Exam GENERAL: This is a well-nourished, well-developed patient, in no apparent distress. SKIN: No rashes, ecchymoses or lesions. Cool and dry. HEAD: Atraumatic. Normocephalic. No temporal or scalp tenderness. EYES: Pupils equal round and reactive. Extraocular motions intact. No scleral icterus. No injection or drainage. ENT: Nose without bleeding, purulent drainage or septal hematoma. Throat without erythema, tonsillar hypertrophy or exudate. Uvula midline. Airway patent. NECK: Trachea midline. No JVD or lymphadenopathy. Supple, nontender, no meningeal signs. CARDIOVASCULAR: Regular rate and rhythm without murmurs, gallops, or rubs. RESPIRATORY: Scattered wheezes, improved airflow GASTROINTESTINAL: Abdomen soft, non-tender, nondistended. No hepato-splenomegaly , or palpable masses. No guarding. MUSCULOSKELETAL: Extremities without clubbing, cyanosis, or edema. No joint tenderness, effusion, or edema noted. No calf tenderness. Negative Homans sign bilaterally. NEUROLOGICAL: Awake and alert. Cranial nerves II through XII intact. Motor and sensory grossly within normal limits. Five out of 5 muscle strength in all muscle groups. Normal speech. Laboratory Laboratory Tests Test 07/21/17 18:00 White Blood Count 4.9 Red Blood Count 4.11 Hemoglobin 13.0 Hematocrit 37.8 Mean Corpuscular Volume 91.9 Mean Corpuscular Hemoglobin 31.7 Mean Corpuscular Hemoglobin Concent 34.5 Red Cell Distribution Width 13.3 Platelet Count 251 Mean Platelet Volume 8.2 Neutrophils (%) (Auto) 65.8 Lymphocytes (%) (Auto) 17.7 Monocytes (%) (Auto) 6.0 Eosinophils (%) (Auto) 8.5 Basophils (%) (Auto) 2.0 Neutrophils # (Auto) 3.2 Lymphocytes # (Auto) 0.9 Monocytes # (Auto) 0.3 Eosinophils # (Auto) 0.4 Basophils # (Auto) 0.1 CBC Comment DIFF FINAL Differential Comment Blood Urea Nitrogen 16 Creatinine 0.89 Random Glucose 122 Total Protein 6.8 Albumin 3.4 Calcium Level 8.2 Magnesium Level 2.1 Alkaline Phosphatase 67 Aspartate Amino Transf (AST/SGOT) 18 Alanine Aminotransferase (ALT/SGPT) 21 Total Bilirubin 0.2 Sodium Level 141 Potassium Level 3.4 Chloride Level 111 Carbon Dioxide Level 22.6 Anion Gap 7 Estimat Glomerular Filtration Rate 71 Result Diagram: 07/21/17 1800 07/21/17 1800 Imaging Last Impressions Chest X-Ray 07/21/17 4118 Signed Impressions: Service Date/Time: Friday, July 21, 2017 18:21 - CONCLUSION: No acute disease. Darian Martinez MD Septic Shock Reassessment Septic shock perfusion: reassessment completed Caprini VTE Risk Assessment Caprini VTE Risk Assessment: No/Low Risk (score <= 1) Caprini Risk Assessment Model Point Value = 1 Point Value = 2 Point Value = 3 Point Value = 5 Age 41-60 Minor surgery BMI > 25 kg/m2 Swollen legs Varicose veins or History of unexplained or recurrent spontaneous Oral contraceptives or hormone replacement Sepsis (< 1 month) Serious lung disease, including pneumonia (< 1 month) Abnormal pulmonary function Acute myocardial infarction Congestive heart failure (< 1 month) History of inflammatory bowel disease Medical patient at bed rest Age 61-74 Arthroscopic surgery Major open surgery (> 45 min) Laparoscopic surgery (> 45 min) Malignancy Confined to bed (> 72 hours) Immobilizing plaster cast Central venous access Age >= 75 History of VTE Family history of VTE Factor V Leiden Prothrombin [id number] Lupus anticoagulant Anticardiolipin antibodies Elevated serum homocysteine Heparin-induced thrombocytopenia Other congenital or acquired thrombophilia Stroke (< 1 month) Elective arthroplasty Hip, pelvis, or leg fracture Acute spinal cord injury (< 1 month) Prophylaxis Regimen Total Risk Factor Score Risk Level Prophylaxis Regimen 0-1 Low Early ambulation 2 Moderate Order ONE of the following: *Sequential Compression Device (SCD) *Heparin 5000 units SQ BID 3-4 Higher Order ONE of the following medications: *Heparin 5000 units SQ TID *Enoxaparin/Lovenox 40 mg SQ daily (WT < 150 kg, CrCl > 30 mL/min) *Enoxaparin/Lovenox 30 mg SQ daily (WT < 150 kg, CrCl > 10-29 mL/min) *Enoxaparin/Lovenox 30 mg SQ BID (WT < 150 kg, CrCl > 30 mL/min) AND/OR *Sequential Compression Device (SCD) 5 or more Highest Order ONE of the following medications: *Heparin 5000 units SQ TID (Preferred with Epidurals) *Enoxaparin/Lovenox 40 mg SQ daily (WT < 150 kg, CrCl > 30 mL/min) *Enoxaparin/Lovenox 30 mg SQ daily (WT < 150 kg, CrCl > 10-29 mL/min) *Enoxaparin/Lovenox 30 mg SQ BID (WT < 150 kg, CrCl > 30 mL/min) AND *Sequential Compression Device (SCD) Assessment and Plan Problem List: (1) Asthma exacerbation ICD Code: J45.901 - Unspecified asthma with (acute) exacerbation Status: Acute Plan: Doing much better Continue bronchodilators Oral steroids Assessment and Plan Overall improved Discharge home Activity unrestricted Code Status Full code Discussed Condition With Patient, family Problem Qualifiers (1) Asthma exacerbation: Qualified Codes: J45.901 - Unspecified asthma with (acute) exacerbation Cyndi Molina MD Jul 22, 2017 10:16
[2017-07-22 10:42] VITALS: O2SAT 95
--- NOTE | 2017-07-22 16:39 | EKG ---
Date Performed: 07/21/2017 Time Performed: 18:10:12 PTAGE: 37 years EKG: SINUS TACHYCARDIA Since previous tracing, no significant change noted ABNORMAL RHYTHM ECG PREVIOUS TRACING : 04/02/2017 01.49 DOCTOR: Arnulfo Castro Interpretating Date/Time 07/22/2017 16:37:59
== END 2017-07-22 11:05 | disposition home or self-care (01) ==
LOC: PHEFT 17:45 → PHEDA 19:04 → PH3B 20:15
PROVIDERS: ADMIT Hospitalist; ATTEND Hospitalist
DX: J45.901 Unspecified asthma with (acute) exacerbation (principal); R00.0 Tachycardia, unspecified; R07.89 Other chest pain; B19.20 Unspecified viral hepatitis C without hepatic coma
CPT/HCPCS: 71045; 80053; 83735; 85025; 93005; 94640; 94664; 96374; 96376; 99285; G0378; J2930; J7613